=== PATIENT | male | born 1975 | race Caucasian/White ===

== ENCOUNTER 2019-03-06 10:26 | Emergency (ER) | payer OTHER ==
[2019-03-06 10:31] VITALS: BP 150/97; PULSE 71; TEMP 97.4; BMI 42.3
[2019-03-06] MEDS ORDERED: KETOROLAC TROMETHAMINE 60 MG/2 ML VIAL IM ONE (11:15)
[2019-03-06] MEDS ORDERED: CYCLOBENZAPRINE HCL 10 MG TABLET (FP) PO ONE (11:15)
--- NOTE | 2019-03-06 11:17 | PDOC ---
History of Present Illness - General Chief Complaint: Back Pain Stated Complaint: LOWER BACK PAIN Time Seen by Provider: 03/06/19 11:05 History Source: Patient Exam Limitations: Clinical Condition - History of Present Illness Initial Comments: 03/06/19 11:31 Patient with history of chronic back pain status post laminectomy 8 years ago for sciatica on left side present with complaint of right lower back pain radiating to posterior right thigh with intermittent numbness and tingling sensation to posterior right thigh. Denies saddle paresthesia, urinary or fecal incontinence. Denies any new trauma or injury. Denies any other symptoms. Reported taking Aleve for pain without improvement. Timing/Duration: other (3 days) Past History - Past Medical History Allergies/Adverse Reactions: Allergies Allergy/AdvReac Type Severity Reaction Status Date / Time No Known Allergies Allergy Verified 03/06/19 10:31 Home Medications: Ambulatory Orders Ciprofloxacin HCl [Cipro] 500 mg PO BID #20 tablet 02/08/12 Oxycodone HCl/Acetaminophen [Percocet 5-325 mg Tablet] 1 - 2 combo PO Q6H Lidocaine 5% Patch [Lidoderm -] 1 patch TP DAILY #30 patch 03/06/19 Methocarbamol [Robaxin -] 500 mg PO BID #14 tablet 03/06/19 Naproxen 500 mg PO BID PRN #20 tablet 03/06/19 COPD: No - Immunization History Td Vaccination: Yes TDAP Vaccination: No Immunization Up to Date: Yes - Suicide/Smoking/Psychosocial Hx Smoking Status: Yes Smoking History: Never smoked Years of Tobacco Use: 0 Number of Cigarettes Smoked Daily: 1 Cigars Per Day: 1 Information on smoking cessation initiated: No Hx Alcohol Use: No Drug/Substance Use Hx: No Substance Use Type: None Review of Systems - Review of Systems Able to Perform ROS?: Yes Is the patient limited [place] proficient: No Constitutional: No: Malaise, Weakness HEENTM: No: Symptoms Reported Respiratory: No: Symptoms reported Cardiac (ROS): No: Symptoms Reported ABD/GI: No: Symptoms Reported Musculoskeletal: Yes: Symptoms Reported, See HPI, Back Pain, Muscle Pain (right lower back). No: Muscle Weakness Neurological: Yes: Symptoms reported, See HPI, Numbness (right posterior leg), Tingling (posterior right leg) All Other Systems: Reviewed and Negative *Physical Exam - Vital Signs Last Vital Signs Temp Pulse Resp BP Pulse Ox 97.4 F L 71 19 150/97 100 03/06/19 10:29 03/06/19 10:29 03/06/19 10:29 03/06/19 10:29 03/06/19 10:29 - Physical Exam Comments: 03/06/19 11:35 GENERAL: Well developed, well nourished. Awake and alert in moderate acute distress. CARDIOVASCULAR: Regular rate and rhythm. No murmurs, rubs, or gallops. PULMONARY: No evidence of respiratory distress. MUSCULOSKELETAL : moderate tenderness to prior vertebral muscle of lumbar spine of L2-S2 on the right side. Pain worse with external rotation of the hip to the left.No bony deformities EXTREMITIES: No cyanosis. No clubbing. No edema. No calf tenderness. SKIN: Warm and dry. Normal capillary refill. No rashes. No jaundice. NEUROLOGICAL: Alert, awake, appropriate. No motor deficits in the lower extremities. Gait is normal without ataxia. PSYCHIATRIC: Cooperative. Good eye contact. Appropriate mood and affect. General Appearance: Yes: Nourished, Appropriately Dressed, Moderate Distress Medical Decision Making - Medical Decision Making 03/06/19 11:32 Patient with history of chronic back pain status post laminectomy 8 years ago for sciatica on left side present with complaint of right lower back pain radiating to posterior right thigh with intermittent numbness and tingling sensation to posterior right thigh. Denies saddle paresthesia, urinary or fecal incontinence. Denies any new trauma or injury. Denies any other symptoms. Reported taking Aleve for pain without improvement. Exam significant for moderate tenderness to prior vertebral muscle of lumbar spine of L2-S2 on the right side. Pain worse with external rotation of the hip to the left. Symptoms likely sciatica from history of herniated disc. Toradol 60 mg IM and cyclobenzaprine 10 mg by mouth ordered for pain and spasm. Patient be discharged home on topical lidocaine patch, naproxen and Robaxin for pain and spasm with orthopedics spine is follow-up for MRI. Neurosurgeon Dr. Post 's office called for patient is follow-up as patient had previous surgery with him. Office advice for patient to call and will make a follow-up appointment tomorrow. Patient stable for discharge *DC/Admit/Observation/Transfer Diagnosis at time of Disposition: Lumbago with sciatica, right side Qualifiers: Chronicity: acute Back pain laterality: right Qualified Code(s): M54.41 - Lumbago with sciatica, right side - Discharge Dispostion Disposition: HOME Condition at time of disposition: Stable Decision to Admit order: No - Prescriptions Prescriptions: Lidocaine 5% Patch [Lidoderm -] 1 patch TP DAILY #30 patch Methocarbamol [Robaxin -] 500 mg PO BID #14 tablet Naproxen 500 mg PO BID PRN #20 tablet PRN Reason: Back Pain - Referrals Referrals: Gerald Post MD [Staff Physician] - - Patient Instructions Printed Discharge Instructions: DI for Low Back Pain Additional Instructions: Take medications as prescribed . Follow-up with Dr. Post as discussed - Post Discharge Activity
[2019-03-06] MEDS ORDERED: KETOROLAC TROMETHAMINE 60 MG/2 ML VIAL ONE (11:24)
[2019-03-06] MEDS ORDERED: CYCLOBENZAPRINE HCL 10 MG TABLET (FP) ONE (11:24)
== END 2019-03-06 11:42 | disposition home or self-care (01) ==
LOC: JERFT 10:26
PROC: 3E0233Z Introduction of Anti-inflammatory into Muscle, Percutaneous Approach (ICD-10-PCS; principal; 2019-03-06)
DX: M54.41 Lumbago with sciatica, right side (principal)
CPT/HCPCS: 96372; 99281-25